=== PATIENT | female | born 1985 | race Two or more races ===

== ENCOUNTER 2023-11-16 11:05 | Emergency (ER) | payer OTHER ==
[~2023-11-16] VITALS: Ht 160 cm; Wt 64.4 kg
[2023-11-16] MEDS ORDERED: NABUMETONE500 MG PO (11:34)
[2023-11-16] MEDS ORDERED: ORPHENADRINE CITRATE 30 MG/ML AMPUL IM ONE (15:30)
[2023-11-16] MEDS ORDERED: KETOROLAC TROMETHAMINE 60 MG VIAL IM ONE (15:30)
== END 2023-11-16 19:40 | disposition home or self-care (01) ==
LOC: ER 11:06
DX: M62.838 Other muscle spasm (principal); M54.50 Low back pain, unspecified; M50.30 Other cervical disc degeneration, unspecified cervical region; Z88.8 Allergy status to other drugs, medicaments and biological substances